=== PATIENT | male | born 1995 | race Caucasian/White ===

== ENCOUNTER 2018-08-05 08:05 | Emergency (ER) | payer OTHER ==
[2018-08-05] MEDS ORDERED: ACETAMINOPHEN 325 MG TABLET ONE (08:38)
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
== END 2018-08-05 09:02 | disposition home or self-care (01) ==
LOC: ER 08:05
DX: M62.830 Muscle spasm of back (principal); V89.2XXA Person injured in unspecified motor-vehicle accident, traffic, initial encounter; Z91.013 Allergy to seafood
CPT/HCPCS: 70450; 71250; 72125; 99284

== ENCOUNTER 2019-10-06 22:19 | Emergency (ER) | payer OTHER ==
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
--- NOTE | 2019-10-07 23:08 | ER ---
Nurse's Notes [facility] Name: Rick Jain Age: 23 yrs Sex: Male : 1995 Arrival Date: 10/06/2019 Time: 22:24 Bed 13 Private MD: Diagnosis: Acute upper respiratory infection, unspecified Presentation: 10/05 22:55 Chief complaint: Patient states: Fever at home, TMAX 103, muscle aches with headache sg and sinus congestion for 1-2 days. Coronavirus screen: Surgical mask placed on patient. Patient moved to private room, placed in contact and droplet isolation with eye protection until further assessment. Patient reports a cough. Patient reports a measured and/or subjective temperature greater than 100.4F. Ebola Screen: Patient negative for fever greater than or equal to 101.5 degrees Fahrenheit, and additional compatible Ebola Virus Disease symptoms Patient denies exposure to infectious person. Patient denies travel to an Ebola-affected area in the 21 days before illness onset. No symptoms or risks identified at this time. Initial Sepsis Screen: Does the patient meet any 2 criteria? No. Patient's initial sepsis screen is negative. Does the patient have a suspected source of infection? No. Patient's initial sepsis screen is negative. Risk Assessment: Do you want to hurt yourself or someone else? Patient reports no desire to harm self or others. Onset of symptoms was October 06, 2019. Care prior to arrival: None. 22:55 Method Of Arrival: Ambulatory sg 22:55 Acuity: FRAN 4 sg Triage Assessment: 23:00 General: Appears in no apparent distress. well groomed, well developed, well nourished, sg Behavior is calm, cooperative, appropriate for age. Neuro: Level of Consciousness is awake, alert, obeys commands, Oriented to person, place, time, situation. Respiratory: Reports cough that is non-productive, dry, Airway is patent Respiratory effort is even, unlabored, Respiratory pattern is regular, symmetrical. Historical: - Allergies: 23:25 SHELLFISH; sg - Home Meds: 23:25 None [Active]; sg - PMHx: 23:25 Asthma; sg - PSHx: 23:25 None; sg - Immunization history:: Adult Immunizations up to date. - Social history:: Smoking status: Patient denies any tobacco usage or history of. Screenin:00 Abuse screen: Denies threats or abuse. Denies injuries from another. Nutritional sg screening: No deficits noted. Tuberculosis screening: No symptoms or risk factors identified. Never had TB. Fall Risk None identified. Assessment: 23:00 General: Appears in no apparent distress. well groomed, well developed, well nourished, sg Behavior is calm, cooperative, appropriate for age. Pain: Complains of pain in headache, and body aches Quality of pain is described as aching. Neuro: Level of Consciousness is awake, alert, obeys commands, Oriented to person, place, time, Lead Programmer are equal bilaterally Moves all extremities. Gait is steady, Speech is normal, Facial symmetry appears normal, Reports headache. Cardiovascular: Capillary refill is brisk in bilateral fingers Patient's skin is warm and dry. Chest pain is denied. Respiratory: Reports cough that is Airway is patent Respiratory effort is even, unlabored, Respiratory pattern is regular, symmetrical, Breath sounds are clear bilaterally. GI: No signs and/or symptoms were reported involving the gastrointestinal system. : No signs and/or symptoms were reported regarding the genitourinary system. EENT: Reports nasal congestion. Derm: Skin is pink, warm \T\ dry. Musculoskeletal: Circulation, motion, and sensation intact. Range of motion: intact in all extremities, Reports muscle aches. Vital Signs: 22:52 BP 145 / 71; Pulse 102 MON; Resp 18 S; Temp 100(O); Pulse Ox 99% on R/A; Weight 104.33 sg kg (R); Height 6 ft. 4 in. (193.04 cm) (R); Pain 2/10; 22:52 Body Mass Index 28.00 (104.33 kg, 193.04 cm) ED Course: 22:24 Patient arrived in ED. es 22:46 Shavon Brock FNP-C [facility]. kb 22:46 Elvin Jain MD is Attending Physician. kb 23:00 Patient has correct armband on for positive identification. Bed in low position. Call sg light in reach. Pulse ox on. NIBP on. 23:00 No provider procedures requiring assistance completed. a COVID 19 swab has been walked sg to lab per hospital policy. Patient did not have IV access during this emergency room visit. 23:18 Arm band placed on. sg 23:27 Triage completed. sg Administered Medications: No medications were administered Outcome: 22:58 Discharge ordered by . peyton 23:07 Patient left the ED. sharath 23:08 Discharged to home ambulatory, with family. sg 23:08 Condition: good 23:08 Discharge instructions given to patient, post COVID 19 quarantine instructions provided Instructed on discharge instructions, follow up and referral plans. medication usage, safety practices, Demonstrated understanding of instructions, follow-up care. Addendum: 10/08/2019 18:40 Addendum: Other Pt informed of positive covid results. Reports she is doing okay. s s Signatures: Shavon Brock, [facility]-C [facility]-Blaine Martin RN RN Mary Puentes Shelby, [place] RN Amanda Epps arJohnnie
== END 2019-10-06 23:07 | disposition home or self-care (01) ==
LOC: ER 22:19
DX: U07.1 COVID-19 (principal); J06.9 Acute upper respiratory infection, unspecified; Z91.013 Allergy to seafood
CPT/HCPCS: 99283; U0002

== ENCOUNTER 2019-10-10 02:02 | Emergency (ER) | payer OTHER ==
--- NOTE | 2019-10-10 02:34 | ER ---
Nurse's Notes [facility] [place], [place] Name: Rick Jain Age: 23 yrs Sex: Male : 1995 Arrival Date: 10/10/2019 Time: 02:06 Bed 17 Private MD: Diagnosis: Wound dehiscence, left hand Presentation: 10/09 02:14 Chief complaint: Patient states: "I cut my hand with a box blade 11 days ago, well I ss took out the sutures a few hours ago and it popped back open. I just want to make sure I don't need anymore sutures.". Coronavirus screen: Proceed with normal triage. Patient denies a cough. Patient denies shortness of breath or difficulty breathing. Patient denies measured and/or subjective temperature greater than 100.4F prior to today's visit. Patient denies travel on a cruise ship or to a country the [facility]NOTE 3] currently lists as an affected area. Patient denies contact with known and/or suspected case of COVID-19. Ebola Screen: Patient denies exposure to infectious person. Patient denies travel to an Ebola-affected area in the 21 days before illness onset. Initial Sepsis Screen: Does the patient meet any 2 criteria? No. Patient's initial sepsis screen is negative. Does the patient have a suspected source of infection? No. Patient's initial sepsis screen is negative. Risk Assessment: Do you want to hurt yourself or someone else? Patient reports no desire to harm self or others. Onset of symptoms was September 2019. 02:14 Method Of Arrival: Ambulatory ss 02:14 Acuity: FRAN 5 ss Historical: - Allergies: 02:15 SHELLFISH; ss - Home Meds: 02:15 None [Active]; ss - PMHx: 02:15 Asthma; ss - PSHx: 02:15 None; ss - Immunization history:: Adult Immunizations up to date. - Social history:: Smoking status: Patient denies any tobacco usage or history of. - Family history:: not pertinent. - Hospitalizations: : No recent hospitalization is reported. Screenin:15 Abuse screen: Denies threats or abuse. Denies injuries from another. Nutritional ss screening: No deficits noted. Tuberculosis screening: Never had TB. Fall Risk None identified. Assessment: 02:15 General: Appears in no apparent distress. comfortable, Behavior is calm, cooperative. ss Pain: Denies pain. Neuro: Level of Consciousness is awake, alert, obeys commands, Oriented to person, place, time, situation. Cardiovascular: Pulses are palpable in right radial artery and left radial artery. Respiratory: Airway is patent Respiratory effort is even, unlabored. Derm: Skin is pink, warm \\T\\ dry. Musculoskeletal: Circulation, motion, and sensation intact. Range of motion: intact in all extremities, Swelling absent. Injury Description: healing laceration to palm of L hand. Approximately 1-1.5 inch in length. Sutures placed 11 days ago, and patient was told to have them removed in 10 days. Pt removed them himself a few hours ago which shortly after washing it, the wound "popped" back open. No bleeding noted. Vital Signs: 02:14 BP 152 / 95; Pulse 87; Resp 16; Temp 97.6(TE); Pulse Ox 98% on R/A; Weight 104.33 kg; ss Height 6 ft. 4 in. (193.04 cm); Pain 0/10; 02:14 Body Mass Index 28.00 (104.33 kg, 193.04 cm) ED Course: 02:06 Patient arrived in ED. bp1 02:15 Triage completed. ss 02:15 Arm band placed on right wrist. ss 02:15 Patient has correct armband on for positive identification. Bed in low position. Call ss light in reach. 02:21 Rizwan Gould MD is Attending Physician. rn 02:31 No provider procedures requiring assistance completed. Patient did not have IV access ss during this emergency room visit. Wound care: to laceration (11 days old) was cleaned with Betadine, dressed with Kerlix, steri strips applied to wound, Patient tolerated well. 02:39 Domitila Hassan, RN is Primary Nurse. lp1 Administered Medications: No medications were administered Outcome: 02:31 Condition: good 02:31 Discharge instructions given to patient, Instructed on discharge instructions, follow up and referral plans. wound care, Demonstrated understanding of instructions, follow-up care, wound care. 02:34 Discharge ordered by . rn 02:39 Discharged to home ambulatory. lp1 02:39 Patient left the ED. lp1 Signatures: Rizwan Gould MD MD rn Smirch, Shelby, RN RN Domitila Hassan, RN RN lp1 Maria Guadalupe Jones bp1
--- NOTE | 2019-10-10 02:34 | EDPHYS ---
Physician Documentation [facility] Name: Rick Jain Age: 23 yrs Sex: Male : 1995 Arrival Date: 10/10/2019 Time: 02:06 Bed 17 Private MD: ED Physician Rizwan Guold HPI: 10/09 02:29 This 23 yrs old Male presents to ER via Ambulatory with complaints of wound rn check. 02:29 Patient presents to ED for recheck of: laceration. The affected area is on the left rn hand. The patient has not experienced similar symptoms in the past. The patient has been recently seen by a physician:. Reports seen at other ER, sutured 11 days ago, told to remove stitches after 10 days, wound seemed fine but when cleaning wound and scab came off, wound opened back up a bit, no drainage, just wanted wound checked to see if needs stitches again.. Historical: - Allergies: 02:15 SHELLFISH; ss - Home Meds: 02:15 None [Active]; ss - PMHx: 02:15 Asthma; ss - PSHx: 02:15 None; ss - Immunization history:: Adult Immunizations up to date. - Social history:: Smoking status: Patient denies any tobacco usage or history of. - Family history:: not pertinent. - Hospitalizations: : No recent hospitalization is reported. ROS: 02:29 Constitutional: Negative for fever, chills, and weight loss, Skin: Negative for wound rn drainage Exam: 02:29 Constitutional: This is a well developed, well nourished patient who is awake, alert, rn and in no acute distress. MS/ Extremity: Pulses equal, no cyanosis. Neurovascular intact. Full, normal range of motion. Equal circumference. + partial wound dehiscence left thenar eminence, no drainage or signs of infection Vital Signs: 02:14 BP 152 / 95; Pulse 87; Resp 16; Temp 97.6(TE); Pulse Ox 98% on R/A; Weight 104.33 kg; ss Height 6 ft. 4 in. (193.04 cm); Pain 0/10; 02:14 Body Mass Index 28.00 (104.33 kg, 193.04 cm) MDM: 02:22 Patient medically screened. rn 02:29 Differential diagnosis: wound dehiscence. Data reviewed: vital signs, nurses notes, and rn as a result, I will discharge patient. Counseling: I had a detailed discussion with the patient and/or guardian regarding: the historical points, exam findings, and any diagnostic results supporting the discharge/admit diagnosis, the need for outpatient follow up, to return to the emergency department if symptoms worsen or persist or if there are any questions or concerns that arise at home. Special discussion: I discussed with the patient/guardian in detail that at this point there is no indication for admission to the hospital. It is understood, however, that if the symptoms persist or worsen the patient needs to return immediately for re-evaluation. ED course: Wound now 11 days old, partial wound dehiscence, cannot reclose, gave multiple recommendations for secondary wound healing. Questions answered. Wound cleaned and steri-strips applied by nurse. . 10/09 02:31 Order name: Wound Care; Complete Time: 02:31 ss 10/09 02:31 Order name: Wound dressing; Complete Time: 02:31 ss Administered Medications: No medications were administered Disposition: 10/10/19 02:34 Discharged to Home. Impression: Wound dehiscence, left hand. - Condition is Stable. - Discharge Instructions: Wound Dehiscence. - Medication Reconciliation Form, Thank You Letter, Antibiotic Education, Prescription Opioid Use form. - Follow up: Private Physician; When: As needed; Reason: Recheck today's complaints, Re-evaluation by your physician. - Problem is new. - Symptoms are unchanged. Signatures: Rizwan Gould MD MD rn Smirch, Shelby, RN RN Domitila Hassan RN RN lp1 Corrections: (The following items were deleted from the chart) 02:39 02:34 10/10/2019 02:34 Discharged to Home. Impression: Wound dehiscence, left hand. lp1 Condition is Stable. Forms are Medication Reconciliation Form, Thank You Letter, Antibiotic Education, Prescription Opioid Use. Follow up: Private Physician; When: As needed; Reason: Recheck today's complaints, Re-evaluation by your physician. Problem is new. Symptoms are unchanged. rn
[2019-10-10 02:45] VITALS: BP 152/95; TEMP 97.6; O2SAT 98
== END 2019-10-10 02:39 | disposition home or self-care (01) ==
LOC: ER 02:02
DX: T81.33XA Disruption of traumatic injury wound repair, initial encounter (principal); Z91.013 Allergy to seafood
CPT/HCPCS: 99283

== ENCOUNTER 2021-03-03 10:06 | Emergency (ER) | payer OTHER, SELFPAY ==
--- NOTE | 2021-03-03 11:54 | EDPHYS ---
Physician Documentation [facility] Name: Rick Jain Age: 25 yrs Sex: Male : 1995 Arrival Date: 03/03/2021 Time: 10:08 Bed 10 Private MD: Elvin Carr HPI: 03/03 11:48 This 25 yrs old Male presents to ER via Ambulatory with complaints of Sore heather Throat - strep+, antibiotics not working. 11:48 The patient presents with sore throat. The patient describes throat pain as burning, heather constant. Onset: The symptoms/episode began/occurred 2 day(s) ago. Severity of symptoms: At their worst the symptoms were mild. Modifying factors: The symptoms are alleviated by nothing, the symptoms are aggravated by swallowing. Associated signs and symptoms: The patient has no apparent associated signs or symptoms. The patient has not experienced similar symptoms in the past. Historical: - Allergies: 11: SHELLFISH; iw - PMHx: 11: Asthma; iw - Social history:: Smoking status: Patient reports the use of cigarette tobacco products, smokes one-half pack cigarettes per day. ROS: 11:50 Constitutional: Negative for fever, chills, and weight loss, Eyes: Negative for injury, heather pain, redness, and discharge, Neck: Negative for injury, pain, and swelling, Cardiovascular: Negative for chest pain, palpitations, and edema, Respiratory: Negative for shortness of breath, cough, wheezing, and pleuritic chest pain, Abdomen/GI: Negative for abdominal pain, nausea, vomiting, diarrhea, and constipation, Back: Negative for injury and pain, : Negative for injury, bleeding, discharge, and swelling, MS/Extremity: Negative for injury and deformity, Skin: Negative for injury, rash, and discoloration, Neuro: Negative for headache, weakness, numbness, tingling, and seizure, Psych: Negative for depression, anxiety, suicide ideation, homicidal ideation, and hallucinations, Allergy/Immunology: Negative for hives, rash, and allergies, Endocrine: Negative for neck swelling, polydipsia, polyuria, polyphagia, and marked weight changes, Hematologic/Lymphatic: Negative for swollen nodes, abnormal bleeding, and unusual bruising. 11:50 ENT: Positive for difficulty swallowing, sore throat. Exam: 11:50 Constitutional: This is a well developed, well nourished patient who is awake, alert, heather and in no acute distress. Head/Face: Normocephalic, atraumatic. Eyes: Pupils equal round and reactive to light, extra-ocular motions intact. Lids and lashes normal. Conjunctiva and sclera are non-icteric and not injected. Cornea within normal limits. Periorbital areas with no swelling, redness, or edema. Neck: Trachea midline, no thyromegaly or masses palpated, and no cervical lymphadenopathy. Supple, full range of motion without nuchal rigidity, or vertebral point tenderness. No Meningismus. Chest/axilla: Normal chest wall appearance and motion. Nontender with no deformity. No lesions are appreciated. Cardiovascular: Regular rate and rhythm with a normal S1 and S2. No gallops, murmurs, or rubs. Normal PMI, no JVD. No pulse deficits. Respiratory: Lungs have equal breath sounds bilaterally, clear to auscultation and percussion. No rales, rhonchi or wheezes noted. No increased work of breathing, no retractions or nasal flaring. Abdomen/GI: Soft, non-tender, with normal bowel sounds. No distension or tympany. No guarding or rebound. No evidence of tenderness throughout. Back: No spinal tenderness. No costovertebral tenderness. Full range of motion. Skin: Warm, dry with normal turgor. Normal color with no rashes, no lesions, and no evidence of cellulitis. MS/ Extremity: Pulses equal, no cyanosis. Neurovascular intact. Full, normal range of motion. Neuro: Awake and alert, GCS 15, oriented to person, place, time, and situation. Cranial nerves II-XII grossly intact. Motor strength 5/5 in all extremities. Sensory grossly intact. Cerebellar exam normal. Normal gait. Psych: Awake, alert, with orientation to person, place and time. Behavior, mood, and affect are within normal limits. 11:50 ENT: Posterior pharynx: Tonsils: bilaterally enlarged, with erythema, with exudate, Uvula: midline, erythema, swelling, that is mild, erythema, that is mild, exudate, that is mild. Vital Signs: 11:00 BP 142 / 95; Pulse 108; Resp 18; Temp 98.6; Pulse Ox 100% on R/A; iw MDM: 11:10 Patient medically screened. [facility] 03/03 11:47 Order name: PO challenge; Complete Time: 12:37 heather Administered Medications: 12:37 Drug: Rocephin (cefTRIAXone) 1 grams Route: IM; Site: left ventrogluteal; iw 12:45 Follow up: Response: No adverse reaction iw Disposition Summary: 03/03/21 11:53 Discharge Ordered Location: Home heather Problem: new heather Symptoms: have improved heather Condition: Stable heather Diagnosis - Acute tonsillitis, unspecified - exudative heather Followup: heather - With: Private Physician - When: 2 - 3 days - Reason: Recheck today's complaints, Continuance of care, Re-evaluation by your physician Followup: heather - With: Fatuma Wilkerson MD - When: 2 - 3 days - Reason: Recheck today's complaints, Re-evaluation by your physician Discharge Instructions: - Discharge Summary Sheet hetaher - Fever, Adult heather - Tonsillitis heather - Tonsillitis, [id number] heather - Fever, Adult, [id number] [facility] Forms: - Medication Reconciliation Form [facility] - Thank You Letter [facility] - Antibiotic Education [facility] - Prescription Opioid Use [facility] Prescriptions: - Augmentin 875-125 mg Oral Tablet - take 1 tablet by ORAL route every 12 hours for 10 days; 20 tablet; Refills: 0, heather Product Selection Permitted Signatures: Elvin Jain MD MD cha Williams, Irene, RN RN iw
--- NOTE | 2021-03-03 11:54 | ER ---
Nurse's Notes [facility] Name: Rick Jain Age: 25 yrs Sex: Male : 1995 Arrival Date: 03/03/2021 Time: 10:08 Bed 10 Private MD: Diagnosis: Acute tonsillitis, unspecified-exudative Presentation: 03/03 11:00 Chief complaint: Patient states: was diagnosed with strep via teled[facility], was put on iw amoxicillin two days ago and now his throat feels more swollen. Coronavirus screen: Client presents with at least one sign or symptom that may indicate coronavirus-19. Ebola Screen: Patient negative for fever greater than or equal to 101.5 degrees Fahrenheit, and additional compatible Ebola Virus Disease symptoms Patient denies exposure to infectious person. Patient denies travel to an Ebola-affected area in the 21 days before illness onset. No symptoms or risks identified at this time. Initial Sepsis Screen: Does the patient meet any 2 criteria? No. Patient's initial sepsis screen is negative. Does the patient have a suspected source of infection? No. Patient's initial sepsis screen is negative. Risk Assessment: Do you want to hurt yourself or someone else? Patient reports no desire to harm self or others. Onset of symptoms was March 01, 2021. 11:00 Method Of Arrival: Ambulatory iw 11:00 Acuity: FRAN 3 iw Triage Assessment: 12:50 General: Appears in no apparent distress. Behavior is calm, cooperative. iw Historical: - Allergies: 11:01 SHELLFISH; iw - PMHx: 11:01 Asthma; iw - Social history:: Smoking status: Patient reports the use of cigarette tobacco products, smokes one-half pack cigarettes per day. Screenin:50 Abuse screen: Denies threats or abuse. Denies injuries from another. Nutritional iw screening: No deficits noted. Tuberculosis screening: No symptoms or risk factors identified. Fall Risk None identified. Assessment: 11:04 Respiratory: Airway is patent Respiratory effort is even, unlabored. EENT: Throat is iw reddened has patchy exudate bilaterally. Vital Signs: 11:00 BP 142 / 95; Pulse 108; Resp 18; Temp 98.6; Pulse Ox 100% on R/A; iw ED Course: 10:08 Patient arrived in ED. as 11:01 Triage completed. iw 11:02 Arm band placed on. iw 11:04 Twyla Chang, RN is Primary Nurse. iw 11:10 Elvin Jain MD is Attending Physician. [facility] 11:52 Fatuma Wilkerson MD is Referral Physician. heather 12:54 No provider procedures requiring assistance completed. Patient did not have IV access iw during this emergency room visit. Administered Medications: 12:37 Drug: Rocephin (cefTRIAXone) 1 grams Route: IM; Site: left ventrogluteal; iw 12:45 Follow up: Response: No adverse reaction iw Outcome: 11:53 Discharge ordered by . heather 12:55 Patient left the ED. iw 12:55 Discharged to home ambulatory. iw 12:55 Condition: good 12:55 Discharge instructions given to 12:55 Instructed on discharge instructions, follow up and referral plans. medication usage, Demonstrated understanding of instructions, follow-up care, medications, Prescriptions given X 1. Signatures: Elvin Jain MD MD cha Martinez, Amelia as Twyla Chang, RN RN iw
[2021-03-03] MEDS ORDERED: CEFTRIAXONE 1000 MG/VIAL ONE (12:32)
[2021-03-03] MEDS ORDERED: LIDOCAINE 1% MPF 5 ML VIAL ONE (12:32)
[2021-03-03 13:06] VITALS: BP 142/95; TEMP 98.6; O2SAT 100
== END 2021-03-03 12:55 | disposition home or self-care (01) ==
LOC: ER 10:06
DX: J03.90 Acute tonsillitis, unspecified (principal); F17.210 Nicotine dependence, cigarettes, uncomplicated; Z91.013 Allergy to seafood
CPT/HCPCS: 96372; 99283